=== PATIENT | female | born 1960 | race Caucasian/White ===

== ENCOUNTER → 2017-05-18 | Outpatient (CLI) | payer OTHER ==
[~2017-05-18] MED LIST: ALLERGY RELIE15.8 ML BOTH NARES; CLARITIN,ALAVAR10 MG PO; COZAAR25 MG PO; FLEXERIL5 MG PO; NEURONTIN300 MG PO; OMEPRAZOLE40 M1 PO; ULTRAM50 MG PO
== END | disposition home or self-care (01) ==
LOC: CDC 08:42
DX: Z01.810 Encounter for preprocedural cardiovascular examination (principal); M51.16 Intervertebral disc disorders with radiculopathy, lumbar region
CPT/HCPCS: 93000

== ENCOUNTER 2017-05-22 05:28 | Day surgery (SDC) | payer OTHER ==
[~2017-05-22] VITALS: Ht 157.5 cm; Wt 68.0 kg
[2017-05-22 06:06] VITALS: BP 112/56
[2017-05-22 10:55] VITALS: BP 123/60
[2017-05-22 12:06] VITALS: BP 103/61
== END 2017-05-22 13:16 | disposition home or self-care (01) ==
LOC: SDC 05:28
PROC: 0SB20ZZ Excision of Lumbar Vertebral Disc, Open Approach (ICD-10-PCS; principal; 2017-05-22)
DX: M51.16 Intervertebral disc disorders with radiculopathy, lumbar region (principal); K21.9 Gastro-esophageal reflux disease without esophagitis; I10 Essential (primary) hypertension; F17.210 Nicotine dependence, cigarettes, uncomplicated; Z88.2 Allergy status to sulfonamides
CPT/HCPCS: 72020; 76000; J0690; J1040; J1170; J2250; S0020